=== PATIENT | female | born 1990 | race Caucasian/White ===

== ENCOUNTER 2020-03-05 08:12 | Emergency (ER) | payer MEDICAID, OTHER ==
--- NOTE | 2020-03-05 08:25 | ER Document Report ---
ED Skin Rash/Insect Bite/Abscs - General Chief Complaint: Abscess Stated Complaint: ABSCESS/ABDOMINAL AREA Time Seen by Provider: 03/05/20 08:24 - HPI Notes: 29-year-old female presents to ED for evaluation of possible abscess to the mid lower abdomen. Patient reports was seen at [facility] last night and they attempted to drain it however she is not having improvement. Reports rounding erythema. States that she was started on antibiotics however has not yet picked them up. Did receive a dose of 2 last night and believes they are Bactrim and Keflex. Patient states that she is surrounding tenderness. Denies fever or chills. Denies nausea or vomiting. Denies a history of MRSA. Denies any other complaints at this time. - Related Data Allergies/Adverse Reactions: No Known Allergies Allergy (Verified 03/05/20 08:21) Past Medical History - Social History Smoking Status: Current Every Day Smoker Family History: Reviewed & Not Pertinent Past Surgical History: Reports: Hx Orthopedic Surgery - RT knee - Immunizations Hx Diphtheria, Pertussis, Tetanus Vaccination: Yes - Apr 2013 Review of Systems - Review of Systems Notes: Constitutional: Negative for fever. HENT: Negative for sore throat. Eyes: Negative for visual changes. Cardiovascular: Negative for chest pain. Respiratory: Negative for shortness of breath. Gastrointestinal: + for abdominal pain, vomiting or diarrhea. Genitourinary: Negative for dysuria. Musculoskeletal: Negative for back pain. Skin: + for abscess without rash. Neurological: Negative for headaches, weakness or numbness. 10 point ROS negative except as marked above and in HPI. Physical Exam - Vital signs Vitals: Temp Pulse Resp BP Pulse Ox 98.3 F 60 16 138/74 H 99 03/05/20 08:16 03/05/20 08:16 03/05/20 08:16 03/05/20 08:16 03/05/20 08:16 General: No acute distress. Alert and oriented x3. Sitting comfortably in a stretcher. Skin: No jaundice, pallor, petechiae, or rashes. Warm and dry. 3 cm circular area of duration to lower abdomen distal to the umbilicus. Minimal centralized area of fluctuance. No drainage. Heart: Regular rate and rhythm. S1,S2. No murmurs, rubs, or gallops. Lungs: Clear to auscultation bilaterally. No wheezes, rhonchi, rales. Equal chest expansion. No retractions. Abdomen: Soft, nontender to palpation, nondistended. Positive bowel sounds in all 4 quadrants. No masses. No CVA tenderness bilaterally. Back: No midline spinal TTP. No paraspinous muscular TTP. Neuro: GCS 15. Moving all extremities without discomfort. Psych: Mood and affect appropriate. Course - Re-evaluation Re-evalutation: 03/05/20 09:26 29-year-old female presents to ED for evaluation of abscess versus cellulitis of the lower abdomen. Was seen at [facility] last night for similar complaints and started on 2 antibiotics. They were unsuccessful with draining the area. Patient is concerned that she may need further intervention. On physical exam, patient has area largely concerning for cellulitis. I do not palpate any fluctuance that could be drained at this time. I did agree to evaluate the area with bedside ultrasound which was performed by myself. I see cobblestoning on ultrasound versus definitive fluid collection. I advised patient of these findings. At this time, I do not believe incision and drainage would be beneficial. Patient was advised that she may require follow-up with general surgery. I will give her an additional dose of clindamycin and she can be kept on Bactrim and Keflex. She is advised to use anti-inflammatories for pain management and return for any new or worsening symptoms. We will jessie the area with a skin pen so she may see any changes outside the defined area. Advised to return if the erythema surpasses these markings. She will otherwise follow-up with her primary care physician. She understands these indications and is agreeable with care plan. - Vital Signs Vital signs: Temp Pulse Resp BP Pulse Ox 98.3 F 60 16 138/74 H 99 03/05/20 08:16 03/05/20 08:16 03/05/20 08:16 03/05/20 08:16 03/05/20 08:16 Procedures - Ultrasound/Bedside Ultrasound/Bedside Time completed: 09:15 Ultrasound: Other Notes: 03/05/20 09:26 Area was prepped with towels and ultrasound machine was used to evaluate area of abscess versus cellulitis to mid lower abdomen. Ultrasound gel was applied and I was able to visualize that there is cobblestoning present to the selected area on ultrasound without definitive area of abscess. Patient advised of findings and tolerated procedure well. Discharge - Discharge Clinical Impression: Abdominal wall cellulitis Condition: Stable Disposition: HOME, SELF-CARE Instructions: Abscess ([facility]), Cephalexin ([facility]) Additional Instructions: Follow-up with primary care for wound check in the next 2 days. Return for any new or worsening symptoms. Also contact general surgery for further management. Forms: Return to Work Referrals: SURGERY [Provider Group] - Follow up as needed
[2020-03-05] MEDS ORDERED: CLINDAMYCIN HCL 150 MG CAPSULE PO ONE (09:24)
[2020-03-05] MEDS ORDERED: KETOROLAC TROMETHAMINE 60 MG/2 ML SDV IM ONE (09:24)
[2020-03-05 09:45] VITALS: BP 130/70
== END 2020-03-05 09:46 | disposition home or self-care (01) ==
LOC: ER 08:12
DX: L03.311 Cellulitis of abdominal wall (principal); R10.9 Unspecified abdominal pain; R11.10 Vomiting, unspecified; R19.7 Diarrhea, unspecified; F17.200 Nicotine dependence, unspecified, uncomplicated
CPT/HCPCS: 99284; 96372; J1885

== ENCOUNTER 2020-03-09 11:03 | Emergency (ER) | payer OTHER ==
[2020-03-09 11:20] VITALS: BP 124/74
--- NOTE | 2020-03-09 12:01 | ER Document Report ---
ED Suture/Wound Recheck - General Chief Complaint: Wound Recheck Stated Complaint: RECHECK/ABSCESS, ABDOMINAL Time Seen by Provider: 03/09/20 11:58 - HPI Notes: 29-year-old female presents to ED for evaluation of abscess reevaluation. Patient was seen here several days ago and had an abscess to the lower abdomen incised and drained. I had seen her several days prior to that and started her on antibiotics. Patient reports that she is here for packing to be changed. Notes substantial improvement. States that the redness is improving, it feels less warm, and she has less drainage. She denies fever or chills. Denies any other complaints at this time. - Related Data Allergies/Adverse Reactions: No Known Allergies Allergy (Verified 03/05/20 08:21) Past Medical History - Social History Smoking Status: Never Smoker Chew tobacco use (# tins/day): No Frequency of alcohol use: None Drug Abuse: None Family History: Reviewed & Not Pertinent Past Surgical History: Reports: Hx Orthopedic Surgery - RT knee - Immunizations Hx Diphtheria, Pertussis, Tetanus Vaccination: Yes - Apr 2013 Review of Systems - Review of Systems Notes: Constitutional: Negative for fever. HENT: Negative for sore throat. Eyes: Negative for visual changes. Cardiovascular: Negative for chest pain. Respiratory: Negative for shortness of breath. Gastrointestinal: Negative for abdominal pain, vomiting or diarrhea. Genitourinary: Negative for dysuria. Musculoskeletal: Negative for back pain. Skin: Abscess to mid lower abdomen Neurological: Negative for headaches, weakness or numbness. 10 point ROS negative except as marked above and in HPI. Physical Exam - Vital signs Vitals: Temp Pulse Resp BP Pulse Ox 98.4 F 64 16 124/74 100 03/09/20 11:19 03/09/20 11:19 03/09/20 11:19 03/09/20 11:19 03/09/20 11:19 General: No acute distress. Alert and oriented x3. Sitting comfortably in a stretcher. Skin: No jaundice, pallor, petechiae, or rashes. Warm and dry. Heart: Regular rate and rhythm. S1,S2. No murmurs, rubs, or gallops. Lungs: Clear to auscultation bilaterally. No wheezes, rhonchi, rales. Equal chest expansion. No retractions. Abdomen: 2 cm area of induration with central open abscess with packing in place to mid lower abdomen distal to the umbilicus. No tenderness. Soft, nontender to palpation, nondistended. Positive bowel sounds in all 4 quadrants. No masses. No CVA tenderness bilaterally. Back: No midline spinal TTP. No paraspinous muscular TTP. Neuro: GCS 15. Moving all extremities without discomfort. Psych: Mood and affect appropriate. Course - Re-evaluation Re-evalutation: 03/09/20 13:21 29-year-old female presents to ED for evaluation of wound recheck. Patient had incision and drainage of her abscess several days ago. On reevaluation, this appears greatly improved. I removed the packing with a small amount of drainage present. I changed and replaced the iodoform packing with new packing with minimal drainage. Patient notes that this feels improved. She is advised to continue her antibiotics and return for any new or worsening symptoms. Patient will follow up with her primary care physician as an outpatient. She is advised to continue hot packing the area. Understands her course of management and is agreeable with care plan. - Vital Signs Vital signs: Temp Pulse Resp BP Pulse Ox 98.4 F 64 16 124/74 100 03/09/20 11:19 03/09/20 11:19 03/09/20 11:19 03/09/20 11:19 03/09/20 11:19 - Laboratory Results Critical Laboratory Results Reviewed: No Critical Results - Radiology Results Critical Radiology Results Reviewed: No Critical Results Discharge - Discharge Clinical Impression: Encounter for wound re-check Condition: Stable Disposition: HOME, SELF-CARE Instructions: Abscess ([facility]), Post Incision and Drainage Additional Instructions: Apply heat to the area 2-3 times daily. May soak in a tub with Epson salt. Remove packing in 2 days. Return for any new or worsening symptoms.
== END 2020-03-09 14:30 | disposition home or self-care (01) ==
LOC: ER 11:03
DX: L02.211 Cutaneous abscess of abdominal wall (principal)
CPT/HCPCS: 99281